=== PATIENT | male | born 1955 | race American Indian/Alaskan Native ===

== ENCOUNTER 2021-11-05 13:24 | Emergency (ER) | payer MEDICARE, OTHER ==
[~2021-11-05 13:24] MED LIST: AMIODARONE 150 MG/3 ML INJ IV ONE; CALCIUM CHLORIDE 1,000 MG/10 ML SYRINGE IV ONE; DOPamine DRIP 800 MG/D5W 250ML PreMix IV ONE; EPINEPHrine 1 MG/10 ML SYRINGE ONE; LIDOCAINE PF 100 MG/5 ML (CARDIAC SYRINGE) IV ONE; SODIUM BICARB 8.4% 50 MEQ/50 ML SYRINGE IV ONE
--- NOTE | 2021-11-05 13:39 | Emergency Department Report ---
HPI - General Time Seen by Provider: 11/05/21 13:34 - HPI HPI: Room 17 The patient is a 65-year-old male presenting in cardiac arrest. Per EMS the patient was running on a treadmill when he collapsed. EMS was called and arrived on scene at 12:50 to find the patient in PEA. The patient was intubated with an ET tube and ACLS protocols initiated. EMS administered 4 rounds of epi prior to arrival. Upon arrival to the ED ACLS protocols were continued but there was no return of spontaneous circulation ED Past Medical Hx - Past Medical History Hx Hypertension: Yes Hx Renal Disease: Yes - Surgical History Additional Surgical History: Left upper extremity fistula - Family History Family history: no significant - Social History Smoking Status: Unknown if ever smoked Substance Use Type: None - Medications Home Medications: Home Medications Medication Instructions Recorded Confirmed Last Taken Type Acetaminophen [Acetaminophen TAB] 650 mg PO Q4H PRN #30 tablet 09/27/17 Unknown Rx AtorvaSTATin [Lipitor] 20 mg PO QHS #30 tab 09/28/17 Unknown Rx minoxidiL [Loniten] 5 mg PO QDAY #30 tablet 09/28/17 Unknown Rx ED Review of Systems ROS: Stated complaint: CARDIAC ARREST Other details as noted in HPI Comment: Unobtainable due to pts medical conditions Physical Exam - Physical Exam Physical Exam: GENERAL: The patient is well-developed well-nourished male lying on stretcher receiving chest compressions from EMS and being bagged via ET tube. [] HEENT: Normocephalic. Atraumatic. NECK: Supple. Trachea midline CHEST/LUNGS: No spontaneous respirations. Breath sounds equal bilaterally with bagging HEART/CARDIOVASCULAR: No heart sounds. PEA on monitor ABDOMEN: There is no abdominal distention. SKIN: There is no diaphoresis. NEURO: GCS 3 T MUSCULOSKELETAL: There is no evidence of acute injury. ED Medical Decision Making - Differential Diagnosis Cardiac arrest Critical care attestation.: If time is entered above; I have spent that time in minutes in the direct care of this critically ill patient, excluding procedure time. ED Disposition Clinical Impression: Cardiac arrest Disposition: 20 Is pt being admited?: No Does the pt Need Aspirin: No Condition: Poor Time of Disposition: 13:35 (Patient )
== END 2021-11-05 19:49 ==
LOC: ED 13:24
DX: I46.9 Cardiac arrest, cause unspecified (principal); Z53.21 Procedure and treatment not carried out due to patient leaving prior to being seen by health care provider
CPT/HCPCS: 92950; 99285; J0171; J0282; J1265; J2001; J3490